=== PATIENT | female | born 1940 | race Two or more races ===

== ENCOUNTER 2018-04-20 15:29 | Emergency (ER) | payer OTHER, MEDICAID ==
[~2018-04-20] VITALS: Ht 154.9 cm; Wt 51.7 kg
[~2018-04-20 15:29] MED LIST: PREVACID PO; TYLENOL
[2018-04-20 16:15] LABS: Basophils # (auto) 0.1 uL; Basophils % (auto) 0.8 % (0.0-2.0); Eosinophils # (auto) 0.1 uL; Eosinophils % (auto) 0.9 % (0.0-7.0); Hematocrit 44.1 % (36.0-46.0); Hemoglobin 15.1 g/dL (12.2-16.2); Lymphocytes # (auto) 1.7 uL; Mean Corpuscular Hemoglobin 32.9 pg (28.0-32.0); Mean Corpuscular Hgb Conc. 34.3 g/dL (32.0-36.0); Mean Corpuscular Volume 95.8 fL (80.0-100.0); Monocytes # (auto) 0.5 uL; Monocytes % (auto) 7.7 % (0.0-12.0); Neutrophils # (auto) 4.2 uL; Neutrophils % (auto) 64.6 % (37.0-80.0); Nucleated Red Blood Cells % 0.1 %; Platelet Count (auto) 203 10^3/uL (140-450); Red Cell Distribution Width 13.2 % (11.8-14.3); White Blood Cell 6.6 10^3/uL (4.4-10.8)
[2018-04-20 16:28] LABS: Alanine Aminotransferase 23 U/L (13-56); Albumin 3.7 g/dL (3.4-5.0); Anion Gap 10 (5-15); Aspartate Aminotransferase 15 U/L (15-37); Blood Urea Nitrogen 16 mg/dL (7-18); Calcium 8.7 mg/dL (8.5-10.1); Carbon Dioxide 20 mmol/L (21-32); Chloride 110 mmol/L (98-107); Glucose 140 mg/dL (74-106); Magnesium 2.3 mg/dL (1.6-2.6); Potassium 3.7 mmol/L (3.5-5.1); Sodium 140 mmol/L (136-145)
[2018-04-20 16:33] LABS: Alkaline Phosphatase 68 U/L (45-117); BUN/Creatinine Ratio 18.6; Bilirubin, Total 1.5 mg/dL (0.2-1.0); GFR African American 82 mL/min; GFR Non-African American 68 mL/min; Total Protein 7.4 g/dL (6.4-8.2)
[2018-04-20] MEDS ORDERED: ASPirin 81 mg TAB PO ONE (18:00)
[2018-04-20 18:21] VITALS: BP 139/84
== END 2018-04-20 18:22 | disposition home or self-care (01) ==
LOC: ER 15:32
DX: R07.89 Other chest pain (principal); Z90.49 Acquired absence of other specified parts of digestive tract; Z88.1 Allergy status to other antibiotic agents; Z91.041 Radiographic dye allergy status
CPT/HCPCS: 36415; 71046; 80053; 83735; 84484; 85025; 93005

== ENCOUNTER → 2019-04-19 | Outpatient (CLI) | payer OTHER, MEDICAID ==
[~2019-04-19] VITALS: Ht 149.9 cm; Wt 47.6 kg
[~2019-04-19] MED LIST changes: +ADENOSINE 40 MG in GIVE UN-DILUTED 0 ML IV STA
== END | disposition home or self-care (01) ==
LOC: XYW 08:34
PROVIDERS: ATTEND Internal Medicine
DX: I48.91 Unspecified atrial fibrillation (principal)
CPT/HCPCS: 78452; 93017; A9500; J0153

== ENCOUNTER 2020-01-07 10:35 | Inpatient (IN) | payer OTHER ==
[~2020-01-07] VITALS: Ht 152.4 cm; Wt 54.4 kg
[~2020-01-07 10:35] MED LIST changes: -ADENOSINE 40 MG in GIVE UN-DILUTED 0 ML IV STA; +NAPR375T27; +OMEPRAZOLE
[2020-01-07 11:00] VITALS: BP 114/72
[2020-01-07 11:33] LABS: Albumin 3.3 g/dL (3.4-5.0); Anion Gap 5 (5-15); Blood Urea Nitrogen 8 mg/dL (7-18); Calcium 8.1 mg/dL (8.5-10.1); Carbon Dioxide 25 mmol/L (21-32); Chloride 109 mmol/L (98-107); Glucose 92 mg/dL (74-106); Potassium 3.2 mmol/L (3.5-5.1); Sodium 139 mmol/L (136-145)
[2020-01-07 11:40] LABS: Alanine Aminotransferase 16 U/L (13-56); Alkaline Phosphatase 64 U/L (45-117); Aspartate Aminotransferase 14 U/L (15-37); BUN/Creatinine Ratio 11.4; Bilirubin, Total 1.7 mg/dL (0.2-1.0); GFR African American 103 mL/min; GFR Non-African American 85 mL/min; Lipase 93 U/L (73-393); Total Protein 6.6 g/dL (6.4-8.2)
[2020-01-07 13:06] LABS: Basophils # (auto) 0.1 10 ^3/uL (0-0.2); Basophils % (auto) 0.7 % (0.0-2.0); Eosinophils # (auto) 0.1 10 ^3/uL (0-0.8); Eosinophils % (auto) 0.7 % (0.0-7.0); Hematocrit 42.4 % (36.0-46.0); Hemoglobin 14.3 g/dL (12.2-16.2); Lymphocytes # (auto) 1.5 10 ^3/uL (0.4-5.4); Lymphocytes % (auto) 18.8 % (10.0-50.0); Mean Corpuscular Hemoglobin 31.7 pg (28.0-32.0); Mean Corpuscular Hgb Conc. 33.6 g/dL (32.0-36.0); Mean Corpuscular Volume 94.1 fL (80.0-100.0); Monocytes # (auto) 0.4 10 ^3/uL (0-1.3); Monocytes % (auto) 5.3 % (0.0-12.0); Neutrophils # (auto) 5.8 10 ^3/uL (1.6-8.6); Neutrophils % (auto) 74.5 % (37.0-80.0); Platelet Count (auto) 209 10^3/uL (140-450); Red Cell Distribution Width 13.6 % (11.8-14.3); White Blood Cell 7.8 10^3/uL (4.4-10.8)
[2020-01-07] MEDS ORDERED: ACETAMINOPHEN 500 MG TAB PO PRN (14:30)
[2020-01-07] MEDS ORDERED: traMADol HCL 50 MG TAB PO PRN (14:30)
[2020-01-07] MEDS ORDERED: MORPHINE SULF INJ 2 MG/ML SYRINGE 1ML IV PRN (14:30)
[2020-01-07] MEDS ORDERED: SODIUM CHLORIDE 0.9% 1,000 ML IV SCH (14:30)
[2020-01-07] MEDS ORDERED: ONDANSETRON HCL 4 MG/2 ML VIAL IV PRN (14:30)
[2020-01-07] MEDS ORDERED: POTASSIUM CHL 20 Meq TABLET PO ONE (14:30)
[2020-01-07] MEDS ORDERED: cefTRIAXone 1GM/50ML D5W 50 ML IV ONE (14:30)
[2020-01-07] MEDS ORDERED: IBUP200C3 PO (16:17)
[2020-01-07] MEDS ORDERED: GABA100C9 PO (16:20)
[2020-01-07] MEDS ORDERED: QUET25TA46 PO (16:20)
[2020-01-07] MEDS ORDERED: OMEP-260 PO (16:20)
[2020-01-07] MEDS ORDERED: DONE5TAB31 PO (16:20)
[2020-01-07] MEDS ORDERED: DONEPEZIL HYDROCHLORIDE 5 MG TAB PO SCH (22:00)
[2020-01-07] MEDS ORDERED: metroNIDAZOLE 500MG/100ML 100 ML IV SCH (22:00)
[2020-01-08] MEDS ORDERED: cefTRIAXone 1GM/50ML D5W 50 ML IV SCH (09:00)
== END 2020-01-07 21:20 | disposition left against medical advice (07) | DRG 392 ==
LOC: ER 10:35 → MERGE 10:36 → OVERFLOW 10:36
PROVIDERS: ADMIT Internal Medicine; ATTEND Internal Medicine
DX: R10.9 Unspecified abdominal pain (principal); G30.9 Alzheimer's disease, unspecified; Z53.29 Procedure and treatment not carried out because of patient's decision for other reasons; F02.80 Dementia in other diseases classified elsewhere, unspecified severity, without behavioral disturbance, psychotic disturbance, mood disturbance, and anxiety; Z90.49 Acquired absence of other specified parts of digestive tract
CPT/HCPCS: 36415; 71045; 74176; 80053; 83690; 84484; 85025; 93005; G0378

== ENCOUNTER → 2020-01-08 | Outpatient (CLI) | payer OTHER ==
[~2020-01-08] MED LIST changes: +DONE5TAB31 PO; +GABA100C9 PO; +IBUP200C3 PO; +OMEP-260 PO; +QUET25TA46 PO
[2020-01-08 12:40] LABS: Urine Bacteria FEW /hpf (None Seen); Urine Blood Negative /uL (Negative); Urine Mucus FEW (None Seen); Urine Specific Gravity 1.013 (1.001-1.035); Urine WBC 9 /hpf (0 - 5)
== END | disposition home or self-care (01) ==
LOC: MERGE 12:27 → LAB 12:27
PROVIDERS: ATTEND Internal Medicine
DX: R10.9 Unspecified abdominal pain (principal)
CPT/HCPCS: 81001

== ENCOUNTER → 2020-01-29 | Outpatient (CLI) | payer OTHER, MEDICAID ==
[2020-01-29 10:44] LABS: Basophils # (auto) 0.1 10 ^3/uL (0-0.2); Basophils % (auto) 1.3 % (0.0-2.0); Eosinophils # (auto) 0.1 10 ^3/uL (0-0.8); Eosinophils % (auto) 1.3 % (0.0-7.0); Hematocrit 41.7 % (36.0-46.0); Lymphocytes # (auto) 1.6 10 ^3/uL (0.4-5.4); Lymphocytes % (auto) 27.4 % (10.0-50.0); Mean Corpuscular Hemoglobin 31.6 pg (28.0-32.0); Mean Corpuscular Hgb Conc. 33.6 g/dL (32.0-36.0); Monocytes # (auto) 0.5 10 ^3/uL (0-1.3); Monocytes % (auto) 8.1 % (0.0-12.0); Neutrophils # (auto) 3.6 10 ^3/uL (1.6-8.6); Neutrophils % (auto) 61.9 % (37.0-80.0); Platelet Count (auto) 237 10^3/uL (140-450); Red Blood Cells 4.43 10^6/uL (4.0-5.20); Red Cell Distribution Width 13.3 % (11.8-14.3); Urine Bacteria NONE SEEN /hpf (None Seen); Urine Blood Negative /uL (Negative); Urine Mucus FEW (None Seen); Urine Specific Gravity 1.023 (1.001-1.035); Urine WBC 1 /hpf (0 - 5); White Blood Cell 5.8 10^3/uL (4.4-10.8)
[2020-01-29 10:49] LABS: Potassium 3.1 mmol/L (3.5-5.1)
[2020-01-29 11:21] LABS: Albumin 3.6 g/dL (3.4-5.0); BUN/Creatinine Ratio 9.5; Bilirubin, Total 1.6 mg/dL (0.2-1.0); Total Protein 6.8 g/dL (6.4-8.2)
== END | disposition home or self-care (01) ==
LOC: LAB 09:50
PROVIDERS: ATTEND Internal Medicine
DX: F03.91 Unspecified dementia, unspecified severity, with behavioral disturbance (principal); R10.9 Unspecified abdominal pain
CPT/HCPCS: 36415; 80053; 81001; 85025; 85652

== ENCOUNTER 2020-06-23 17:17 | Inpatient (IN) | payer OTHER, MEDICAID ==
[~2020-06-23] VITALS: Ht 152.4 cm; Wt 51.7 kg
[2020-06-23 18:56] LABS: Basophils # (auto) 0 10 ^3/uL (0-0.2); Basophils % (auto) 0.8 % (0.0-2.0); Eosinophils # (auto) 0 10 ^3/uL (0-0.8); Eosinophils % (auto) 1.2 % (0.0-7.0); Hematocrit 40.1 % (36.0-46.0); Hemoglobin 14.2 g/dL (12.2-16.2); Lymphocytes % (auto) 24.5 % (10.0-50.0); Mean Corpuscular Hemoglobin 32.5 pg (28.0-32.0); Mean Corpuscular Hgb Conc. 35.4 g/dL (32.0-36.0); Monocytes # (auto) 0.5 10 ^3/uL (0-1.3); Monocytes % (auto) 11.7 % (0.0-12.0); Neutrophils # (auto) 2.6 10 ^3/uL (1.6-8.6); Neutrophils % (auto) 61.8 % (37.0-80.0); Platelet Count (auto) 187 10^3/uL (140-450); Red Blood Cells 4.36 10^6/uL (4.0-5.20); Red Cell Distribution Width 13.4 % (11.8-14.3); White Blood Cell 4.2 10^3/uL (4.4-10.8)
[2020-06-23 19:21] LABS: Albumin 3.3 g/dL (3.4-5.0); BUN/Creatinine Ratio 11.7; Bilirubin, Total 0.7 mg/dL (0.2-1.0); Calcium 8.4 mg/dL (8.5-10.1); Total Protein 6.8 g/dL (6.4-8.2)
[2020-06-23 19:42] LABS: Potassium 2.9 mmol/L (3.5-5.1)
[2020-06-23] MEDS ORDERED: POTASSIUM EFFERVESENT TAB 25 MEQ PO ONE (19:45)
[2020-06-23] MEDS ORDERED: DexAMETHasone SOD PHOS 10MG/1ML VIAL INJ IV ONE (22:30)
[2020-06-23] MEDS ORDERED: AZITHROMYCIN 500MG/ 250ML 250 ML IV ONE (22:30)
[2020-06-23] MEDS ORDERED: ONDANSETRON HCL 4 MG/2 ML VIAL IV PRN (23:15)
[2020-06-23] MEDS ORDERED: ACETAMINOPHEN 325 MG TAB PO PRN (23:15)
[2020-06-23] MEDS ORDERED: NITROGLYCERIN 0.4 MG SL TAB SL PRN (23:15)
[2020-06-23] MEDS ORDERED: MORPHINE SULF INJ 2 MG/ML SYRINGE 1ML IV PRN (23:15)
[2020-06-23] MEDS ORDERED: TEMAZEPAM 15 MG CAP PO PRN (23:15)
[2020-06-23 23:33] LABS: INR 0.94 (0.9-1.15); Partial Thromboplastin Time 26.5 sec (23.0-31.2)
[2020-06-24 01:40] LABS: CRP High Sensitivity 0.46 mg/dL (< 0.3); Magnesium 2.2 mg/dL (1.6-2.6)
[2020-06-24 08:28] LABS: Basophils # (auto) 0 10 ^3/uL (0-0.2); Basophils % (auto) 0.2 % (0.0-2.0); Eosinophils # (auto) 0 10 ^3/uL (0-0.8); Hematocrit 40.9 % (36.0-46.0); Hemoglobin 14.4 g/dL (12.2-16.2); Lymphocytes # (auto) 0.6 10 ^3/uL (0.4-5.4); Lymphocytes % (auto) 24.2 % (10.0-50.0); Mean Corpuscular Hemoglobin 32.3 pg (28.0-32.0); Mean Corpuscular Hgb Conc. 35.3 g/dL (32.0-36.0); Mean Corpuscular Volume 91.6 fL (80.0-100.0); Monocytes # (auto) 0.1 10 ^3/uL (0-1.3); Monocytes % (auto) 4.3 % (0.0-12.0); Neutrophils # (auto) 1.8 10 ^3/uL (1.6-8.6); Neutrophils % (auto) 71.3 % (37.0-80.0); Nucleated Red Blood Cells % 0.2 %; Platelet Count (auto) 191 10^3/uL (140-450); Red Blood Cells 4.47 10^6/uL (4.0-5.20); Red Cell Distribution Width 13.2 % (11.8-14.3); White Blood Cell 2.6 10^3/uL (4.4-10.8)
[2020-06-24 08:42] LABS: Potassium 3.7 mmol/L (3.5-5.1)
[2020-06-24 08:49] LABS: Albumin 3.3 g/dL (3.4-5.0); BUN/Creatinine Ratio 9.8; Bilirubin, Total 0.7 mg/dL (0.2-1.0); Calcium 8.4 mg/dL (8.5-10.1); Total Protein 7.3 g/dL (6.4-8.2)
[2020-06-24] MEDS: ZINC SULFATE 220mg CAP or TAB PO SCH (11:35)
[2020-06-24] MEDS: FAMOTIDINE 20 MG TAB PO SCH ×2 (11:35→22:37)
[2020-06-24] MEDS: ASCORBIC ACID 1,000 MG TAB PO SCH (11:36)
[2020-06-24] MEDS: ENOXAPARIN SOD 40 MG/0.4 ML SYRINGE SC SCH ×2 (11:36→22:37)
[2020-06-24] MEDS: CHOLECALCIFEROL (VITD3) 2,000 UNIT CAP PO SCH (11:36)
[2020-06-24 11:59] VITALS: BP 133/106
[2020-06-24 16:30] VITALS: BP 146/115
[2020-06-24] MEDS ORDERED: METOPROLOL TARTRATE 25 MG TAB PO ONE (17:00)
[2020-06-24] MEDS ORDERED: hydrALAZINE HCL 20 MG/ML VL IV PRN (18:15)
[2020-06-24] MEDS: ALBUTEROL SULF HFA 90MCG INH 200DOSE IN PRN (19:02)
[2020-06-24] MEDS ORDERED: AZITHROMYCIN 500MG/ 250ML 250 ML IV SCH (22:00)
[2020-06-24] MEDS ORDERED: DexAMETHasone SOD PHOS 10MG/1ML VIAL INJ IV SCH (22:00)
[2020-06-24 23:35] VITALS: BP 155/75
[2020-06-25] MEDS: ALBUTEROL SULF HFA 90MCG INH 200DOSE IN PRN (08:00)
[2020-06-25 08:15] VITALS: BP 142/74
[2020-06-25] MEDS: FAMOTIDINE 20 MG TAB PO SCH (08:40)
[2020-06-25] MEDS: ZINC SULFATE 220mg CAP or TAB PO SCH (08:40)
[2020-06-25] MEDS: ASCORBIC ACID 1,000 MG TAB PO SCH (08:41)
[2020-06-25] MEDS: ENOXAPARIN SOD 40 MG/0.4 ML SYRINGE SC SCH (08:41)
[2020-06-25] MEDS: CHOLECALCIFEROL (VITD3) 2,000 UNIT CAP PO SCH (08:41)
[2020-06-25] MEDS ORDERED: METOPROLOL TARTRATE 25 MG TAB PO SCH (10:00)
== END 2020-06-25 21:30 | disposition home or self-care (01) | DRG 177 ==
LOC: ER 17:17 → TELE 23:10 → TELE-WESTW 06-24 11:29
PROVIDERS: ADMIT Nurse Practitioner; ATTEND Internal Medicine
DX: U07.1 COVID-19 (principal); J12.89 Other viral pneumonia; D68.59 Other primary thrombophilia; R62.7 Adult failure to thrive; G30.9 Alzheimer's disease, unspecified; E87.6 Hypokalemia; F02.80 Dementia in other diseases classified elsewhere, unspecified severity, without behavioral disturbance, psychotic disturbance, mood disturbance, and anxiety; Z86.73 Personal history of transient ischemic attack (TIA), and cerebral infarction without residual deficits; Z79.82 Long term (current) use of aspirin; I10 Essential (primary) hypertension; Z90.49 Acquired absence of other specified parts of digestive tract; Z88.1 Allergy status to other antibiotic agents; Z91.041 Radiographic dye allergy status
CPT/HCPCS: 36415; 71045; 80053; 82728; 83605; 83615; 83735; 83880; 84132; 84443; 84484; 85025; 85379; 85610; 85730; 86141; 87040; 87426; 94640; 96365; 96375; G0378; J1100

== ENCOUNTER → 2021-07-29 | Outpatient (CLI) | payer OTHER ==
[~2021-07-29] MED LIST changes: -DONE5TAB31 PO; +DONE5TAB80 PO; +QUET1TAB11 PO; -QUET25TA46 PO
[2021-07-29 11:25] LABS: Basophils # (auto) 0.1 10 ^3/uL (0-0.2); Eosinophils # (auto) 0.2 10 ^3/uL (0-0.8); Eosinophils % (auto) 2.4 % (0.0-7.0); Hematocrit 41.6 % (36.0-46.0); Hemoglobin 14.2 g/dL (12.2-16.2); Lymphocytes # (auto) 1.6 10 ^3/uL (0.4-5.4); Lymphocytes % (auto) 24.4 % (10.0-50.0); Mean Corpuscular Hemoglobin 31.4 pg (28.0-32.0); Mean Corpuscular Hgb Conc. 34.2 g/dL (32.0-36.0); Mean Corpuscular Volume 91.7 fL (80.0-100.0); Monocytes # (auto) 0.5 10 ^3/uL (0-1.3); Monocytes % (auto) 8.4 % (0.0-12.0); Neutrophils # (auto) 4.1 10 ^3/uL (1.6-8.6); Neutrophils % (auto) 63.8 % (37.0-80.0); Red Blood Cells 4.53 10^6/uL (4.0-5.20); Red Cell Distribution Width 13.4 % (11.8-14.3); White Blood Cell 6.4 10^3/uL (4.4-10.8)
[2021-07-29 11:45] LABS: Urine Bacteria NONE SEEN /hpf (None Seen); Urine Blood Negative /uL (Negative); Urine Mucus FEW (None Seen); Urine Specific Gravity 1.024 (1.001-1.035); Urine WBC 6 /hpf (0 - 5)
[2021-07-29 12:01] LABS: Albumin 3.5 g/dL (3.4-5.0); Calcium 9.5 mg/dL (8.5-10.1); Potassium 3.5 mmol/L (3.5-5.1)
[2021-07-29 12:08] LABS: BUN/Creatinine Ratio 15.6; Bilirubin, Total 1.2 mg/dL (0.2-1.0); Free T4 (Free Thyroxine) 1.29 ng/dL (0.89-1.76); Total Protein 7.2 g/dL (6.4-8.2)
== END | disposition home or self-care (01) ==
LOC: LAB 09:43
PROVIDERS: ATTEND Internal Medicine
DX: K21.9 Gastro-esophageal reflux disease without esophagitis (principal); F03.90 Unspecified dementia, unspecified severity, without behavioral disturbance, psychotic disturbance, mood disturbance, and anxiety
CPT/HCPCS: 36415; 80053; 80061; 81001; 82607; 84439; 84443; 85025; 85652

== ENCOUNTER 2021-12-09 13:10 | Day surgery (SDC) | payer OTHER, MEDICAID ==
[2021-12-07 10:02] LABS: Basophils # (auto) 0.1 10 ^3/uL (0-0.2); Basophils % (auto) 1.4 % (0.0-2.0); Eosinophils # (auto) 0.1 10 ^3/uL (0-0.8); Eosinophils % (auto) 2.4 % (0.0-7.0); Hematocrit 41.1 % (36.0-46.0); Hemoglobin 13.4 g/dL (12.2-16.2); Lymphocytes # (auto) 1.7 10 ^3/uL (0.4-5.4); Lymphocytes % (auto) 26.5 % (10.0-50.0); Mean Corpuscular Hemoglobin 31.2 pg (28.0-32.0); Mean Corpuscular Hgb Conc. 32.5 g/dL (32.0-36.0); Mean Corpuscular Volume 95.8 fL (80.0-100.0); Monocytes # (auto) 0.5 10 ^3/uL (0-1.3); Monocytes % (auto) 7.6 % (0.0-12.0); Neutrophils # (auto) 3.9 10 ^3/uL (1.6-8.6); Neutrophils % (auto) 62.1 % (37.0-80.0); Nucleated Red Blood Cells % 0.1 %; Red Blood Cells 4.29 10^6/uL (4.0-5.20); Red Cell Distribution Width 14.4 % (11.8-14.3); White Blood Cell 6.3 10^3/uL (4.4-10.8)
[2021-12-07 10:28] LABS: INR 1.01 (0.9-1.15); Partial Thromboplastin Time 26.7 sec (23.6-33.0)
[2021-12-07 10:36] LABS: Albumin 3.1 g/dL (3.4-5.0); Calcium 8.6 mg/dL (8.5-10.1)
[2021-12-07 10:41] LABS: BUN/Creatinine Ratio 10.4; Bilirubin, Total 0.9 mg/dL (0.2-1.0); Total Protein 6.8 g/dL (6.4-8.2)
[~2021-12-09] VITALS: Ht 149.9 cm; Wt 49.9 kg
[~2021-12-09 13:10] MED LIST changes: +ALEN70TA74 PO; +ASPI1TAB20 PO; +CYAN1TAB14 PO; -IBUP200C3 PO; -OMEPRAZOLE; +POTA1TAB61 PO; -PREVACID PO; +TRAM50TA2 PO; -TYLENOL
[2021-12-09] MEDS ORDERED: SODIUM CHLORIDE LOCK 10 ML ONE (14:08)
[2021-12-09] MEDS: diphenhdrAMINE HCL 50 MG/1 ML VL ONE ×2 (14:30→14:33)
[2021-12-09] MEDS: MIDAZOLAM HCL 5 MG/ML-1ML VIAL ONE ×3 (14:30→14:48)
[2021-12-09] MEDS: fentaNYL CITRATE 100 MCG/2 ML VL ONE ×4 (14:30→14:48)
[2021-12-09 16:30] VITALS: BP 163/88
== END 2021-12-09 15:00 | disposition home or self-care (01) ==
LOC: GI 13:10
PROVIDERS: ATTEND Internal Medicine Gastroenterology
DX: R19.4 Change in bowel habit (principal); D12.2 Benign neoplasm of ascending colon; D12.3 Benign neoplasm of transverse colon; D12.5 Benign neoplasm of sigmoid colon; K57.30 Diverticulosis of large intestine without perforation or abscess without bleeding; K64.8 Other hemorrhoids; F32.A Depression, unspecified; F03.90 Unspecified dementia, unspecified severity, without behavioral disturbance, psychotic disturbance, mood disturbance, and anxiety; Z86.010 Personal history of colon polyps; Z90.49 Acquired absence of other specified parts of digestive tract; Z98.890 Other specified postprocedural states; Z79.899 Other long term (current) drug therapy; Z20.822 Contact with and (suspected) exposure to COVID-19
CPT/HCPCS: 36415; 45385; 74018; 80053; 85025; 85610; 85730; 88305; J1200; J2250; J3010; U0003; 99152; 99153

== ENCOUNTER → 2022-08-06 | Outpatient (CLI) | payer OTHER, MEDICAID ==
[2022-08-06 10:21] LABS: Basophils # (auto) 0.1 10 ^3/uL (0-0.2); Basophils % (auto) 0.9 % (0.0-2.0); Eosinophils # (auto) 0.1 10 ^3/uL (0-0.8); Eosinophils % (auto) 1.6 % (0.0-7.0); Hematocrit 42.2 % (36.0-46.0); Hemoglobin 14.1 g/dL (12.2-16.2); Lymphocytes # (auto) 1.7 10 ^3/uL (0.4-5.4); Lymphocytes % (auto) 26.7 % (10.0-50.0); Mean Corpuscular Hemoglobin 31.8 pg (28.0-32.0); Mean Corpuscular Hgb Conc. 33.6 g/dL (32.0-36.0); Mean Corpuscular Volume 94.9 fL (80.0-100.0); Monocytes # (auto) 0.6 10 ^3/uL (0-1.3); Monocytes % (auto) 9.6 % (0.0-12.0); Neutrophils # (auto) 3.8 10 ^3/uL (1.6-8.6); Neutrophils % (auto) 61.2 % (37.0-80.0); Nucleated Red Blood Cells % 0.1 %; Red Blood Cells 4.44 10^6/uL (4.0-5.20); Red Cell Distribution Width 13.9 % (11.8-14.3); White Blood Cell 6.3 10^3/uL (4.4-10.8)
[2022-08-06 10:39] LABS: Urine Bacteria NONE SEEN /hpf (None Seen); Urine Blood Negative /uL (Negative); Urine Mucus FEW (None Seen); Urine Specific Gravity 1.026 (1.001-1.035); Urine WBC 4 /hpf (0 - 5)
[2022-08-06 11:06] LABS: Albumin 3.3 g/dL (3.4-5.0); Calcium 8.8 mg/dL (8.5-10.1); Potassium 3.9 mmol/L (3.5-5.1)
[2022-08-06 11:12] LABS: BUN/Creatinine Ratio 20.5; Bilirubin, Total 1.4 mg/dL (0.2-1.0); Total Protein 6.7 g/dL (6.4-8.2)
[2022-08-06 13:03] LABS: Free T4 (Free Thyroxine) 1.11 ng/dL (0.89-1.76)
[2022-08-06 13:04] LABS: Folate (Folic Acid) 9.02 ng/mL (5.38-24)
== END | disposition home or self-care (01) ==
LOC: LAB 09:57
PROVIDERS: ATTEND Internal Medicine
DX: F03.90 Unspecified dementia, unspecified severity, without behavioral disturbance, psychotic disturbance, mood disturbance, and anxiety (principal); K21.9 Gastro-esophageal reflux disease without esophagitis
CPT/HCPCS: 36415; 80053; 80061; 81001; 82607; 82746; 84439; 84443; 85025; 85652

== ENCOUNTER → 2022-09-17 | Outpatient (CLI) | payer OTHER, MEDICAID | END | disposition home or self-care (01) | LOC: LAB 09:35 | PROVIDERS: ATTEND Family Medicine | DX: C44.519 Basal cell carcinoma of skin of other part of trunk (principal) | CPT/HCPCS: 88302 ==

== ENCOUNTER 2025-01-28 10:43 | Outpatient (CLI) | payer OTHER, MEDICAID ==
[~2025-01-28 10:43] MED LIST changes: +GABA-1308 PO; -GABA100C9 PO; +NAPR-957; -NAPR375T27; -OMEP-260 PO; +OMEP1CAP70 PO; +POTA-215 PO; -POTA1TAB61 PO
[2025-01-28 11:15] LABS: Hematocrit 42.6 % (36.0-46.0); Hemoglobin 14.8 g/dL (12.2-16.2); Mean Corpuscular Hemoglobin 32.5 pg (28.0-32.0); Mean Corpuscular Volume 93.8 fL (80.0-100.0); Nucleated Red Blood Cells % 0.1 %
[2025-01-28 11:44] LABS: Urine Protein, UAD Negative (Negative)
[2025-01-28 11:51] LABS: Alanine Aminotransferase 20 U/L (7-40); Albumin 4.2 g/dL (3.2-4.8); Alkaline Phosphatase 73 U/L (46-116); Anion Gap 8 (5-15); BUN/Creatinine Ratio 11.5 (10.0-20.0); Calcium 8.8 mg/dL (8.7-10.4); Carbon Dioxide 30 mmol/L (20-31); Chloride 105 mmol/L (98-107); Glucose 80 mg/dL (74-106); Potassium 4.0 mmol/L (3.5-5.1); Sodium 143 mmol/L (136-145); Total Protein 6.3 g/dL (5.7-8.2)
[2025-01-28 11:52] LABS: Blood Urea Nitrogen 7 mg/dL (9-23); Cholesterol 141 mg/dL (< 200); HDL Cholesterol 43 mg/dL (40-59); Triglycerides 157 mg/dL (< 150)
[2025-01-28 11:53] LABS: Bilirubin, Total 1.8 mg/dL (0.2-1.0)
[2025-01-28 11:56] LABS: Free T4 (Free Thyroxine) 1.15 ng/dL (0.89-1.76)
== END 2025-01-28 17:00 | disposition home or self-care (01) ==
LOC: LAB 10:43
PROVIDERS: ATTEND Internal Medicine
DX: K21.9 Gastro-esophageal reflux disease without esophagitis (principal); F03.90 Unspecified dementia, unspecified severity, without behavioral disturbance, psychotic disturbance, mood disturbance, and anxiety; Z79.899 Other long term (current) drug therapy
CPT/HCPCS: 36415; 80053; 80061; 81001; 82306; 82607; 84439; 84443; 85025; 85652

== ENCOUNTER 2025-02-26 15:20 | Emergency (ER) | payer OTHER, MEDICAID ==
[~2025-02-26] VITALS: Ht 152.4 cm; Wt 48.0 kg
--- NOTE | 2025-02-26 15:52 | ED.PDOC ---
Jackie. trauma (HPI) HPI Comments 84-year-old female with a history of dementia, osteoporosis and remote history of TIA brought in by daughter for evaluation of a head injury after a mechanical fall in the shower around 1300 today. Patient and daughter state the patient was attempting to grab a towel after bathing when she lost her balance, fell backward onto her buttocks, hitting the back of her head on the corner of the tub. Daughter was present and states the patient did not lose consciousness. The patient was able to stand with assistance and now is able to ambulate. Patient is complaining of a headache, but denies any other injuries aside from a superficial laceration on her left 5th finger sustained as she was attempting to grab one of the handrails as she fell. She denies any dizziness, vision changes, nausea, vomiting or focal weakness. Chief Complaint: Fall Injury Time Seen by MD: 15:50 Primary Care Provider: UNKNOWN Reviewed notes: Nurses Notes, Medications, Allergies Allergies: Coded Allergies: Iodine (Verified Allergy, Mild, 12/09/09) Vancomycin (Verified Allergy, Unknown, 12/10/09) Home Meds Reported Medications Tramadol Hcl (Tramadol Hcl) 50 Mg Tab, 50 MG PO, TAB 12/07/21 Aspirin (Aspir-81) 81 Mg Tab, 81 MG PO, TAB 12/07/21 Cyanocobalamin (B12) 1,000 Mcg Tab, 2500 MCG PO, TAB 12/07/21 Potassium Chloride (Klor-Con M10) 10 Meq Tab, 10 MEQ PO, TAB 12/07/21 Alendronate Sodium (Alendronate Sodium) 70 Mg Tab, 70 MG PO Q7D, TAB 12/07/21 Gabapentin (Gabapentin) 100 Mg Cap, 1 CAP PO TID, #90 CAP 2 Refills 01/07/20 Quetiapine Fumerate (QUETIAPINE FUMARATE) 25 Mg Tab, 25 MG PO DAILY, TAB 01/07/20 Omeprazole (Omeprazole Dr) 20 Mg Cap, 20 MG PO DAILY, CAP 01/07/20 Donepezil Hydrochloride (DONEPEZIL HCL) 5 Mg Tab, 5 MG PO DAILY, MG 01/07/20 [[id number] Mg] (Naproxen) 375 MG TAB No Conflict Check, MG 08/03/12 Information Source: Relative (Child) Mode of Arrival: Ambulatory Severity: Moderate Timing: Hours Duration: Since onset Prehospital treatment: None Location: Head, (L) Hip, (R) Hip Location of laceration: Other (HAND LEFT 5TH DIGIT) Mechanism: Fall Associated signs and symtoms: Headache Past Medical History PAST MEDICAL HISTORY: Alzheimer, TIA Past Medical History (Other): Osteoporosis Surgical History: Appendectomy Surgical History (Other): Cervical spine surgery Partial colectomy [employer] History: No Pertinent [employer] History Family History Family History: Unknown Social History Smoker: Non-Smoker Alcohol: Denies ETOH Use Drugs: Denies Drug Use Lives In: Home Unable to Obtain due to: Dementia Physical Exam General Appearance: No Apparent Distress HEENT: Other (Pupils and face symmetric. Moist mucous membranes. Occipital soft tissue tenderness, mild bruising and soft tissue swelling. No crepitus or step-off.) Neck: Full Range of Motion, Non-Tender, Normal Inspection, Supple Respiratory: Chest Non-Tender, Lungs Clear, No Accessory Muscle Use, No Respiratory Distress, Normal Breath Sounds Cardiovascular: No Edema, No JVD, Regular Rate/Rhythm Breast Exam: Deferred Gastrointestinal: Non Tender, Soft Genitalia: Deferred Pelvic: Deferred Rectal: Deferred Extremities: Normal range of motion, No pedal edema, Other (Superficial subcentimeter laceration distal aspect left 5th finger with minimal localized wound site tenderness. No bony tenderness.) Neurologic: Alert (Oriented x4), Normal Affect, Normal Mood, Other (Ambulatory. No gross focal deficit.) Cerebellar Function: NOT DONE Reflexes: NOT DONE Skin: Bruises (Mild occipital scalp bruise), Dry, Lacerations (Subcentimeter superficial left distal 5th finger laceration), Normal Color, Warm Lymphatic: NOT DONE Was a procedure done? Was a procedure done?: No Differential Diagnosis Multiple Trauma: Closed Head Injury, Fractures, Cerebral Contusion, Contusion, Hematoma, Other (Intracranial hemorrhage) X-Ray, Labs, Meds, VS Vital Signs Date Time Temp Pulse Resp B/P (MAP) Pulse Ox O2 Delivery O2 Flow Rate FiO2 02/26/25 16:48 98.0 80 16 134/82 (99) 97 98.0 02/26/25 15:22 98.4 94 16 147/90 96 98.4 Current Medications Medications (Trade) Dose Ordered Sig/Sonja Route Start Time Stop Time Status Last Admin Diphtheria/ Tetanus/Acell Pertussis (Boostrix T-Dap) 0.5 ml ONCE ONCE IM 02/26/25 15:45 02/26/25 15:47 DC 02/26/25 16:44 Acetaminophen (Tylenol Tablet Or Capsule) 1,000 mg ONCE ONCE PO 02/26/25 15:45 02/26/25 15:47 DC 02/26/25 16:44 PROCEDURE(s): HWOCT - HEAD WITHOUT CONTRAST REASON: fall with occipital trauma, no loc, on asa ORDER NUMBER(s): [id number], ACCESSION NUMBER(s): [id number] CLINICAL HISTORY: fall with occipital trauma, no loc, on asa TECHNIQUE: Helical scanning was performed of the head from the skull base to the vertex. Multiplanar reconstructions were performed. This exam was performed according to our departmental dose optimization program. Up-to-date CT equipment and radiation dose reduction techniques are utilized as appropriate. CTDI 48.8 DLP 781.1 COMPARISON: CT HEAD WITHOUT CONTRAST on DOS: 12/24/22 FINDINGS: There is no evidence for acute intracranial hemorrhage, acute ischemic changes, mass, mass effect, or extra-axial fluid collection. There is no hydrocephalus or midline shift. There is no effacement of the cerebral sulci and basal subarachnoid cisterns. The lobato-white matter differentiation is well maintained. The imaged paranasal sinuses are clear. IMPRESSION: NO ACUTE INTRACRANIAL ABNORMALITY SEEN. X-Ray, Labs, Meds, VS Comment 84-year-old female with a history of dementia, osteoporosis and remote history of TIA brought in by daughter for evaluation of a head injury after a mechanical fall in the shower around 1300 today. Initial vitals remarkable for BP 147/90 Exam remarkable for occipital scalp bruising, soft tissue tenderness and superficial subcentimeter left 5th finger laceration Rhythm strip independently interpreted by me: Sinus rhythm, rate 84, no ectopy. CT head unremarkable Patient treated with the following in the ED: Tylenol 1 g p.o., Tdap 0.5 mL IM On re-evaluation, patient is alert, appears comfortable and is neurologically intact. She is at her baseline mental status according to the daughter. She appears stable for discharge with close outpatient follow-up with her primary physician. Rx Tylenol. Time of 1ST Reevaluation: 16:20 Reevaluation 1ST: Unchanged Patient Education/Counseling: Diagnosis, Treatment Family Education/Counseling: No Family Present Departure 1 Departure Time of Disposition: 17:17 Impression: Primary Impression: Minor head injury Qualified Codes: S09.90XA - Unspecified injury of head, initial encounter Disposition: HOME / SELF CARE / HOMELESS Condition: Stable Additional Instructions: Your head CT did not show any serious injury. I have enclosed a report below. I have prescribed pain medication for your headache. Follow-up with your primary doctor in 1-2 days. Return to ER for severe persistent headache, vomiting, vision changes, weakness, fainting, or any other concern. [place] [id number] Ph: [phone] DIAGNOSTIC IMAGING Diagnostic Imaging Report : [id number] Signed PATIENT: SALVATORE CROW ACCT: [id number] UNIT: [id number] : 1940 LOC: ER ROOM / BED: / AGE / SEX: 84 / F ADM STATUS: REG ER SERVICE [id number] ORDERING PHYSICIAN: TENZIN CASSIDY MD PROCEDURE(s): HWOCT - HEAD WITHOUT CONTRAST REASON: fall with occipital trauma, no loc, on asa ORDER NUMBER(s): [id number], ACCESSION NUMBER(s): [id number] CLINICAL HISTORY: fall with occipital trauma, no loc, on asa TECHNIQUE: Helical scanning was performed of the head from the skull base to the vertex. Multiplanar reconstructions were performed. This exam was performed according to our departmental dose optimization program. Up-to-date CT equipment and radiation dose reduction techniques are utilized as appropriate. CTDI 48.8 DLP 781.1 COMPARISON: CT HEAD WITHOUT CONTRAST on DOS: 12/24/22 FINDINGS: There is no evidence for acute intracranial hemorrhage, acute ischemic changes, mass, mass effect, or extra-axial fluid collection. There is no hydrocephalus or midline shift. There is no effacement of the cerebral sulci and basal subarachnoid cisterns. The lobato-white matter differentiation is well maintained. The imaged paranasal sinuses are clear. IMPRESSION: NO ACUTE INTRACRANIAL ABNORMALITY SEEN. e-Prescriptions Acetaminophen (Tylenol) 325 Mg Cap 650 MG PO Q6HP PRN, #30 CAP Prn pain Prov: TENZIN CASSIDY MD 02/26/25 Discharged With: Relative Critical Care Note Critical Care Time?: No Stability Stability form required: No Heart Score Heart Score: Heart Score Response (Comments) Value History N/A 0 EKG N/A 0 Age N/A 0 Risk Factors N/A 0 Troponin N/A 0 Total 0 I personally scribed for MIER JULIEN MD ([email or web address]) on 02/26/25 at 15:52. Electronically submitted by Maryellen Cabrera ([email or web address]). IMER JULIEN MD Feb 26, 2025 15:52 TENZIN CASSIDY MD Feb 26, 2025 17:20
[2025-02-26] MEDS: TETANUS-DIPTH-ACEL PERTUSSIS 0.5ML SYR Tdap IM ONE (16:44)
[2025-02-26] MEDS: ACETAMINOPHEN 500 MG TAB or CAP PO ONE (16:44)
--- NOTE | 2025-02-26 16:44 | DVH ---
CLINICAL HISTORY: fall with occipital trauma, no loc, on asa TECHNIQUE: Helical scanning was performed of the head from the skull base to the vertex. Multiplanar reconstructions were performed. This exam was performed according to our departmental dose optimizat ion program. Up-to-date CT equipment and radiation dose reduction techniques are utilized as appropri ate. CTDI 48.8 DLP 781.1 COMPARISON: CT HEAD WITHOUT CONTRAST on DOS: 12/24/22 FINDINGS: There is no evidence for acute intracranial hemorrhage, acute ischemic changes, mass, mass effect, or extra-axial fluid collection. There is no hydrocephalus or midline shift. There is no effacement of the cerebral sulci and basal subarachnoid cisterns. The lobato-white matter differentiation is well jerome ntained. The imaged paranasal sinuses are clear. IMPRESSION: NO ACUTE INTRACRANIAL ABNORMALITY SEEN.
[2025-02-26 16:48] VITALS: BP 134/82; PULSE 80; RESP 16; TEMP 98; O2SAT 97
[2025-02-26] MEDS ORDERED: ACET1CAP14 PO (17:19)
== END 2025-02-26 17:27 | disposition home or self-care (01) ==
LOC: ER 15:20
DX: S61.217A Laceration without foreign body of left little finger without damage to nail, initial encounter (principal); S00.03XA Contusion of scalp, initial encounter; G30.9 Alzheimer's disease, unspecified; Z79.899 Other long term (current) drug therapy; Z86.73 Personal history of transient ischemic attack (TIA), and cerebral infarction without residual deficits; Z90.49 Acquired absence of other specified parts of digestive tract; Z88.1 Allergy status to other antibiotic agents; Z88.8 Allergy status to other drugs, medicaments and biological substances; W01.0XXA Fall on same level from slipping, tripping and stumbling without subsequent striking against object, initial encounter; Y93.E1 Activity, personal bathing and showering; Y92.89 Other specified places as the place of occurrence of the external cause; Y99.8 Other external cause status
CPT/HCPCS: 70450; 90471; 90715